=== PATIENT | male | born 1960 | race Caucasian/White ===

== ENCOUNTER 2017-07-29 09:52 | Outpatient (CLI) | payer OTHER ==
--- NOTE | 2017-07-30 11:56 | Ultrasound Report ---
Limited abdominal ultrasound: Nausea/vomiting. Imaging of the liver is echogenically normal. The body and head of the pancreas appear normal but the tail is not well-visualized. The gallbladder demonstrates a mildly thickened wall. No pericholecystic fluid. There is dependent echogenicity in the gallbladder but there is no shadowing. The CBD diameter is 4 mm. The right renal length is 10.5 cm. The kidney is echogenically unremarkable. The transverse diameter of the proximal abdominal aorta is 2.3 cm. Impressions: Gallbladder wall thickening and moderate volume of sludge. Recommendation: Consider HIDA scan with ejection fraction.
== END 2017-07-29 09:53 | disposition home or self-care (01) ==
LOC: US 09:52
PROVIDERS: ATTEND Family Medicine
DX: R11.2 Nausea with vomiting, unspecified (principal)
CPT/HCPCS: 76705